=== PATIENT | female | born 2000 | race Two or more races ===

== ENCOUNTER 2023-02-01 05:51 | Emergency (ER) | payer SELFPAY ==
[2023-02-01] MEDS ORDERED: Dexamethasone 10 MG/ML VIAL ONE (06:40)
[2023-02-01] MEDS ORDERED: Ketorolac Tromethamine 30 MG/ML VIAL ONE (06:41)
== END 2023-02-01 06:54 | disposition home or self-care (01) ==
LOC: CSHERS 05:51
DX: J02.0 Streptococcal pharyngitis (principal); F17.290 Nicotine dependence, other tobacco product, uncomplicated
CPT/HCPCS: 87430; 96372; 99283; J1100; J1885